=== PATIENT | female | born 1960 | race African-American/Black ===

== ENCOUNTER → 2024-02-02 | Day surgery (SDC) | payer OTHER ==
[2024-02-01 13:36] LABS: Absolute Lymphocytes (CBC) 1.5 K/uL (0.7-4.9); Absolute Monocytes 0.3 K/uL (0.1-1.3); Absolute Neutrophil 2.8 K/uL (1.8-8.0); Eosinophils % 0.7 % (0-4.4); Hematocrit 41.8 % (36.0-45.0); Hemoglobin 13.6 g/dL (12.0-15.0); Lymphocytes % 32.7 % (15.3-44.8); MCH 28.4 pg (27.0-35.0); MCHC 32.6 g/dL (32.0-36.0); MPV 7.3 fL (7.6-11.3); Monocytes % 6.7 % (3.3-12.3); Neutrophils % 58.9 % (41.7-73.7); Platelets 304 thou/uL (152-406); Red Cell Distribution Width 14.6 % (12.1-15.2)
--- NOTE | 2024-02-01 13:56 | RAD REPORT ---
EXAM: Chest Pa And Lat (2 Views) HISTORY: Pre-op pending laparoscopy COMPARISON: 11/06/2009 FINDINGS: LUNGS/PLEURA: The lungs are clear. No pleural effusions or pneumothorax. No pulmonary edema. MEDIASTINUM: The mediastinal silhouette is within normal limits. CARDIAC: The cardiac silhouette is within normal limits. UPPER ABDOMEN: No significant abnormality. BONES: No acute fracture. LINES/TUBES/OTHER: N/A IMPRESSION: No evidence of acute cardiopulmonary disease
[~2024-02-02] MED LIST: FENTANYL CITR 100 MCG/2 ML ONE; GLYCOPYRROLATE 0.2 MG/ML SYR ONE; LIDOCAINE 1% MPF 5 ML VIAL ONE; MIDAZOLAM HCL 2 MG/2 ML INJ ONE; NEOSTIGMINE 1 MG/ML -10 ML VIAL ONE; ONDANSETRON 4 MG/2 ML VIAL ONE; Phenylephrine HCl 10 MG/ML 1 ML VIAL ONE; ROCURONIUM 50 MG/5 ML VIAL IV ONE; dexAMETHasone 4 MG/ML VIAL ONE; propofoL 200 MG/20 ML VIAL IV ONE
[2024-02-02] MEDS: Ringers Lactate 1,000 ML IV ONE (07:10)
[2024-02-02] MEDS: CEFAZOLIN SODIUM 1 GM/VIAL ONE (08:00)
[2024-02-02] MEDS: HYDROMORPHONE HCL 1 MG/ML INJ ONE (09:20)
--- NOTE | 2024-02-02 09:21 | P.BOP ---
Preoperative diagnosis: lower abdominal pain Postoperative diagnosis: same Primary procedure: Diagnostic laparoscopy, laparoscopic lysis of adhesions Estimated blood loss: <10cc Findings: extensive intrabdominal adhesions Anesthesia: General Complications: None Transferred to: Recovery Room Condition: Good
[2024-02-02 09:35] VITALS: TEMP 97
[2024-02-02] MEDS: ONDANSETRON 4 MG (ODT) TAB ONE (10:47)
[2024-02-02 11:19] VITALS: BP 106/53; O2SAT 100
--- NOTE | 2024-02-03 12:23 | EKG ---
Test Date: 2024-02-01 Test Time: 13:06:57 [employer] Operator: ADDI MEASUREMENT RESULTS: Intervals: Rate: 82 NV: 172 QRSD: 78 QT: 350 QTc: 408 [place]: P: 69 NV: 172 QRS: 17 T: 74 INTERPRETIVE STATEMENTS: Normal sinus rhythm Normal ECG Compared to ECG 03/26/2016 15:48:28 Left ventricular hypertrophy no longer present Electronically Signed On 02-03-24 12:17:25 CDT by Jose Kothari
== END | disposition home or self-care (01) ==
LOC: OR 06:33
PROVIDERS: ATTEND Surgery
PROC: 0WJG4ZZ Inspection of Peritoneal Cavity, Percutaneous Endoscopic Approach (ICD-10-PCS; 2024-02-02)
PROC: 0DNW4ZZ Release Peritoneum, Percutaneous Endoscopic Approach (ICD-10-PCS; principal; 2024-02-02 08:15)
DX: R10.32 Left lower quadrant pain (principal); K66.0 Peritoneal adhesions (postprocedural) (postinfection)
CPT/HCPCS: 49329; 49320; 93005; 85025; 80048; 36415; 71046; Q0162; J2704; J1100; J2710; J2001; J2371; J2250; J3010; J1170; J2405; J7120; J0690